=== PATIENT | female | born 1980 | race Caucasian/White ===

== ENCOUNTER 2022-03-14 02:40 | Inpatient (IN) | payer OTHER ==
[~2022-03-14] VITALS: Ht 172.7 cm; Wt 113.6 kg
[2022-03-14] MEDS ORDERED: CYMBALTA60 MG PO (16:03)
[2022-03-14] MEDS ORDERED: SULINDAC200 MG PO (16:10)
[2022-03-14] MEDS ORDERED: RIZATRIPTAN10 MG PO (16:10)
[2022-03-14] MEDS ORDERED: HYDROCHLOROTHIA25 MG PO (16:11)
[2022-03-14] MEDS ORDERED: EMGALITY120 MG/1 M SQ (16:11)
[2022-03-14] MEDS ORDERED: LEVOTHYROXINE25 MCG PO (16:11)
[2022-03-14] MEDS ORDERED: VITAMIN E100 UNI2 PO (16:24)
[2022-03-14] MEDS ORDERED: VITAMIN D325 MC6 PO (16:24)
[2022-03-14 17:35] LABS: HEMOGLOBIN 11.9 gm/dl (12.3-15.3); RED BLOOD COUNT 4.44 M/UL (4.00-5.10); WHITE BLOOD COUNT 9.4 K/UL (4.5-11.0)
[2022-03-14 17:55] LABS: BUN/CREATININE RATIO 17 (0-10)
[2022-03-15 06:32] LABS: HEMOGLOBIN 11.4 gm/dl (12.3-15.3); RED BLOOD COUNT 4.31 M/UL (4.00-5.10); WHITE BLOOD COUNT 8.2 K/UL (4.5-11.0)
[2022-03-15 07:11] LABS: BUN/CREATININE RATIO 17 (0-10)
--- NOTE | 2022-03-15 12:53 | NUR ---
PATIENT WENT INTO SVT HEART RATE IN 200'S. MD DR. HARRIS ORDERED TO GIVE ADENOSINE 6MG IV PUSH, GIVEN AT 1253. AT 1254 PATIENT IS IN SINUS RHYTHM AT 88, 97% RA, 115/61 (74).
== END 2022-03-16 11:29 | disposition home or self-care (01) | DRG 274 ==
LOC: PROG CARE 15:51
PROVIDERS: Physician Assistant Medical; ADMIT Internal Medicine
PROC: 02583ZZ Destruction of Conduction Mechanism, Percutaneous Approach (ICD-10-PCS; principal; 2022-03-15)
PROC: 4A023FZ Measurement of Cardiac Rhythm, Percutaneous Approach (ICD-10-PCS; 2022-03-15)
PROC: 4A0234Z Measurement of Cardiac Electrical Activity, Percutaneous Approach (ICD-10-PCS; 2022-03-15)
PROC: 02K83ZZ Map Conduction Mechanism, Percutaneous Approach (ICD-10-PCS; 2022-03-15)
DX: I47.1 Supraventricular tachycardia (principal); I10 Essential (primary) hypertension; E66.9 Obesity, unspecified; G43.909 Migraine, unspecified, not intractable, without status migrainosus; M79.7 Fibromyalgia; E55.9 Vitamin D deficiency, unspecified; F41.9 Anxiety disorder, unspecified; Z68.38 Body mass index [BMI] 38.0-38.9, adult; Z91.040 Latex allergy status; Z80.3 Family history of malignant neoplasm of breast; Z80.1 Family history of malignant neoplasm of trachea, bronchus and lung; Z90.710 Acquired absence of both cervix and uterus
CPT/HCPCS: 36415; 80048; 80053; 82550; 82553; 83735; 84439; 84443; 84484; 85027; 85730; 93005; 93613; 93620; 93621; 93623; 99152; 99153; C1730; C1733; C1766; J0153; J1644; J1650; J2250; J3010; J7040; J7050